=== PATIENT | female | born 1925 | race Two or more races ===

== ENCOUNTER 2016-09-10 18:21 | Inpatient (IN) | payer MEDICARE, MEDICAID ==
[~2016-09-10] VITALS: Ht 152.4 cm; Wt 56.7 kg
[2016-09-10] VITALS (9 sets, daily range): BP systolic 107–126; BP diastolic 58–77
[2016-09-10] MEDS ORDERED: FUROSEMIDE 40 MG/4 ML VIAL IV ONE (18:30)
[2016-09-10] MEDS ORDERED: FUROSEMIDE 20 MG/2 ML VIAL ONE (18:41)
[2016-09-10] MEDS ORDERED: methylPREDNISolone SOD SUCC 125 MG/2ML VIAL ONE (18:41)
[2016-09-10 18:57] LABS: BASOPHILS # (AUTO) 0.1 /CMM (0.0-0.2); BASOPHILS % (AUTO) 0.7 % (0.0-2.0); DIFF TOTAL % 100 %; EOSINOPHILS # (AUTO) 0.1 /CMM (0.0-0.7); EOSINOPHILS % (AUTO) 0.6 % (0.0-6.0); HEMATOCRIT 42 % (33-45); HEMOGLOBIN 14.4 g/dL (11.5-14.8); MEAN CORPUSCULAR HEMOGLOBIN 31 PG (26.0-33.0); MEAN CORPUSCULAR HGB CONC 34 g/dl (31.0-36.0); MEAN CORPUSCULAR VOLUME 91 fL (82-100); MONOCYTES # (AUTO) 0.8 /CMM (0.1-1.30); MONOCYTES % (AUTO) 5.9 % (2.0-12.0); NEUTROPHILS # (AUTO) 9.4 /CMM (1.8-8.9); NEUTROPHILS % (AUTO) 64.8 % (43.0-81.0); PLATELET COUNT (AUTO) 390 /CMM (150-450); RED BLOOD CELL COUNT(AUTO) 4.67 MIL/uL (4.0-5.2); WHITE BLOOD COUNT (AUTO) 14.4 K/uL (4.3-11.0)
[2016-09-10] MEDS ORDERED: ALBUTEROL FS 2.5 MG/3 ML VIAL.NEB NEB ONE (19:00)
[2016-09-10] MEDS ORDERED: methylPREDNISolone SOD SUCC 125 MG/2ML VIAL IV ONE (19:00)
[2016-09-10] MEDS ORDERED: IPRATROPIUM NEB FS 0.5 MG/2.5 ML AMPUL.NEB NEB ONE (19:00)
[2016-09-10 19:05] LABS: CALCIUM, SERUM 9.5 mg/dL (8.5-10.1); CREATININE 1.1 mg/dL (0.6-1.3); POTASSIUM 3.5 mmol/L (3.5-5.1)
[2016-09-10] MEDS ORDERED: IPRATROPIUM NEB FS 0.5 MG/2.5 ML AMPUL.NEB ONE (19:06)
[2016-09-10] MEDS ORDERED: ALBUTEROL FS 2.5 MG/3 ML VIAL.NEB ONE (19:06)
[2016-09-10 19:12] LABS: INR 0.94 (0.87-1.13); PROTHROMBIN TIME 10.2 SECS (9.5-12.7)
[2016-09-10 19:13] LABS: TROPONIN I 0.138 ng/mL (0.00-0.056)
[2016-09-10 19:17] LABS: ALBUMIN 3.6 g/dL (3.4-5.0); BILIRUBIN,DIRECT 0.1 mg/dL (0.0-0.2); BILIRUBIN,TOTAL 0.3 mg/dL (0.2-1.0); INDIRECT BILIRUBIN 0.2 mg/dL (0.0-1.1); TOTAL PROTEIN, SERUM 8.1 g/dL (6.4-8.2)
[2016-09-10] MEDS ORDERED: MAG HYDROX/AL HYDROX/SIMETH 30 ML UDC PO PRN (20:30)
[2016-09-10] MEDS ORDERED: ONDANSETRON HCL/PF 4 MG/2 ML VIAL IVP PRN (20:30)
[2016-09-10] MEDS ORDERED: MAGNESIUM HYDROXIDE 30 ML UDC PO PRN (20:30)
[2016-09-10] MEDS ORDERED: ACETAMINOPHEN 325 MG TABLET PO PRN (20:30)
[2016-09-10] MEDS ORDERED: ENOXAPARIN SODIUM 40 MG/0.4 ML DISP.SYRIN SQ SCH (20:30)
[2016-09-10] MEDS ORDERED: Z GUARD REMEDY 2 OZ OINT TP PRN (20:30)
[2016-09-10] MEDS ORDERED: IPRATROPIUM NEB FS 0.5 MG/2.5 ML AMPUL.NEB NEB PRN (20:30)
[2016-09-10] MEDS ORDERED: ALBUTEROL FS 2.5 MG/0.5 ML VIAL.NEB NEB PRN (20:30)
[2016-09-10] MEDS ORDERED: LEVOFLOXACIN 500 MG /D5W 100ML 500 MG in PREMIX 1 EA IV SCH (20:30)
[2016-09-10] MEDS ORDERED: SECONDARY IV SET 1 EA INFUS.SET MC ONE (20:54)
[2016-09-10] MEDS ORDERED: IV SET PRIMARY PUMP SET 1 EA INFUS.SET MC ONE (20:54)
[2016-09-10] MEDS ORDERED: LEVOFLOXACIN 500 MG /D5W 100ML 500 MG in PREMIX 1 EA IV ONE (21:00)
[2016-09-10] MEDS ORDERED: DEXTROSE 50%-WATER 50 ML DISP.SYRIN IV PRN (21:00)
[2016-09-10 21:01] LABS: ABG BASE EXCESS 0.3 mmol/L; ABG HCO3 23.9 mmol/L; ABG PCO2 35.8 mmHg (35.0-45.0); ABG PH 7.443 (7.350-7.450); ABG PO2 57.7 mmHg (75.0-100.0); ABG TOTAL HEMOGLOBIN 14.2 G/dL (12.0-16.0); ALLEN TEST Pass; AaDO2 475.1 mmHg; O2Hb 89.2 % (94.0-97.0)
[2016-09-10] MEDS: IV NS 0.9% 1,000 ML IV PRN (21:22)
[2016-09-10] MEDS: ENOXAPARIN SODIUM 30 MG/0.3 ML DISP.SYRIN SQ SCH (21:24)
[2016-09-10] MEDS ORDERED: BENZONATATE 100 MG CAPSULE PO ONE (21:52)
[2016-09-10] MEDS: BENZONATATE 100 MG CAPSULE PO PRN (22:54)
[2016-09-10] MEDS: BLOOD SUGAR DIAGNOSTIC 1 EACH STRIP IN SCH (23:56)
[2016-09-10] MEDS: INSULIN REGULAR, HUMAN 100 UNIT/ML 3 ML VIAL SQ PRN (23:59)
[2016-09-11] VITALS (27 sets, daily range): BP systolic 102–140; BP diastolic 60–85
[2016-09-11] MEDS: IPRATROPIUM NEB FS 0.5 MG/2.5 ML AMPUL.NEB NEB SCH ×5 (01:30→19:49)
[2016-09-11] MEDS: ALBUTEROL FS 2.5 MG/0.5 ML VIAL.NEB NEB SCH ×5 (01:30→19:49)
[2016-09-11 05:02] LABS: DIFF TOTAL % 100 %; HEMATOCRIT 40 % (33-45); HEMOGLOBIN 13.3 g/dL (11.5-14.8); LYMPHOCYTES % (AUTO) 11.1 % (20.0-44.0); MEAN CORPUSCULAR HEMOGLOBIN 30 PG (26.0-33.0); MEAN CORPUSCULAR HGB CONC 33 g/dl (31.0-36.0); MEAN CORPUSCULAR VOLUME 90 fL (82-100); MONOCYTES % (AUTO) 0.4 % (2.0-12.0); NEUTROPHILS # (AUTO) 8.4 /CMM (1.8-8.9); NEUTROPHILS % (AUTO) 88.5 % (43.0-81.0); PLATELET COUNT (AUTO) 369 /CMM (150-450); RED BLOOD CELL COUNT(AUTO) 4.41 MIL/uL (4.0-5.2); WHITE BLOOD COUNT (AUTO) 9.4 K/uL (4.3-11.0)
[2016-09-11 05:24] LABS: BILIRUBIN,TOTAL 0.2 mg/dL (0.2-1.0); CALCIUM, SERUM 8.9 mg/dL (8.5-10.1); POTASSIUM 3.9 mmol/L (3.5-5.1); TOTAL PROTEIN, SERUM 7.4 g/dL (6.4-8.2)
[2016-09-11] MEDS: BLOOD SUGAR DIAGNOSTIC 1 EACH STRIP IN SCH ×3 (06:22→18:00)
[2016-09-11] MEDS: INSULIN REGULAR, HUMAN 100 UNIT/ML 3 ML VIAL SQ PRN ×3 (06:28→17:13)
[2016-09-11] MEDS ORDERED: RALO60TA PO (08:05)
[2016-09-11] MEDS ORDERED: THEO400T PO (08:05)
[2016-09-11] MEDS ORDERED: METF500T7 PO (08:05)
[2016-09-11] MEDS ORDERED: OMEP20CA10 PO (08:05)
[2016-09-11] MEDS ORDERED: MONT10TA22 PO (08:05)
[2016-09-11] MEDS ORDERED: GLIP-16 PO (08:05)
[2016-09-11] MEDS ORDERED: SITA100T PO (08:05)
[2016-09-11] MEDS ORDERED: CANA100T PO (08:05)
[2016-09-11] MEDS ORDERED: CELE-85 PO (08:05)
[2016-09-11] MEDS ORDERED: CIPR500T5 PO (08:05)
[2016-09-11] MEDS ORDERED: OLME1TAB2 PO (08:05)
[2016-09-11] MEDS ORDERED: AMLO10TA2 PO (08:05)
[2016-09-11] MEDS: methylPREDNISolone SOD SUCC 125 MG/2ML VIAL IV SCH ×3 (08:54→17:12)
[2016-09-11] MEDS: PANTOPRAZOLE 40 MG VIAL IV SCH (08:54)
[2016-09-11] MEDS ORDERED: MULT-479 PO (09:32)
[2016-09-11] MEDS ORDERED: ASPI81TA2 PO (09:32)
[2016-09-11] MEDS ORDERED: FLUT1DIS29 IH (09:32)
[2016-09-11] MEDS ORDERED: TIOT18CA3 IH (09:32)
[2016-09-11] MEDS ORDERED: MULT-1168 PO (09:32)
[2016-09-11 10:00] LABS: ABG BASE EXCESS 1.7 mmol/L; ABG HCO3 26.1 mmol/L; ABG PCO2 40.1 mmHg (35.0-45.0); ABG PH 7.431 (7.350-7.450); ABG PO2 58.5 mmHg (75.0-100.0); ABG TOTAL HEMOGLOBIN 13.9 G/dL (12.0-16.0); ALLEN TEST Pass; AaDO2 209.5 mmHg; O2Hb 88.9 % (94.0-97.0)
[2016-09-11] MEDS: MULTIVITAMINS W-MINERALS 1 TAB TABLET PO SCH (13:15)
[2016-09-11] MEDS: METFORMIN XR 500 MG TAB.SR.24H PO SCH (13:15)
[2016-09-11] MEDS: MONTELUKAST SODIUM (10MG) 10 MG TABLET PO SCH (13:16)
[2016-09-11] MEDS: AMLODIPINE BESYLATE 10 MG TABLET PO SCH (13:18)
[2016-09-11] MEDS: ASPIRIN 81 MG TAB.CHEW PO SCH (13:18)
[2016-09-11] MEDS: GLIPIZIDE XL 5 MG TAB.OSM.24 PO SCH (13:19)
[2016-09-11] MEDS: RALOXIFENE 60 MG TABLET PO SCH (13:19)
[2016-09-11] MEDS: IV NS 0.9% 1,000 ML IV PRN (17:32)
[2016-09-11] MEDS ORDERED: IV SET PRIMARY PUMP SET 1 EA INFUS.SET MC ONE (19:24)
[2016-09-11] MEDS: LEVOFLOXACIN 250 MG /D5W 50 ML 250 MG in PREMIX 1 EA IV SCH (21:04)
[2016-09-11] MEDS: ENOXAPARIN SODIUM 30 MG/0.3 ML DISP.SYRIN SQ SCH (21:16)
[2016-09-11] MEDS: Z GUARD REMEDY 2 OZ OINT TP SCH (21:18)
[2016-09-12] VITALS (16 sets, daily range): BP systolic 118–145; BP diastolic 63–75
[2016-09-12] MEDS: INSULIN REGULAR, HUMAN 100 UNIT/ML 3 ML VIAL SQ PRN ×4 (00:17→23:41)
[2016-09-12] MEDS: BLOOD SUGAR DIAGNOSTIC 1 EACH STRIP IN SCH ×5 (00:23→23:39)
[2016-09-12] MEDS: IPRATROPIUM NEB FS 0.5 MG/2.5 ML AMPUL.NEB NEB SCH ×4 (01:30→19:10)
[2016-09-12] MEDS: ALBUTEROL FS 2.5 MG/0.5 ML VIAL.NEB NEB SCH ×4 (01:30→19:10)
[2016-09-12] MEDS: ZOLPIDEM TARTRATE 5 MG TABLET PO PRN ×2 (02:39→22:31)
[2016-09-12] MEDS ORDERED: Medication Not On Formulary EA (Omeprazole 20 MG) PO SCH (09:00)
[2016-09-12] MEDS ORDERED: Medication Not On Formulary EA (Mu-Vits-Min Th/Lycopene/Lutein (Centrum Silver Tablet) 1 PO SCH (09:00)
[2016-09-12] MEDS: PANTOPRAZOLE 40 MG VIAL IV SCH (09:21)
[2016-09-12] MEDS: RALOXIFENE 60 MG TABLET PO SCH (09:21)
[2016-09-12] MEDS: GLIPIZIDE XL 5 MG TAB.OSM.24 PO SCH (09:21)
[2016-09-12] MEDS: CELECOXIB 100 MG CAPSULE PO SCH (09:21)
[2016-09-12] MEDS: methylPREDNISolone SOD SUCC 125 MG/2ML VIAL IV SCH ×3 (09:21→16:25)
[2016-09-12] MEDS: METFORMIN XR 500 MG TAB.SR.24H PO SCH (09:22)
[2016-09-12] MEDS: SITAGLIPTIN PHOSPHATE 50 MG TABLET PO SCH (09:22)
[2016-09-12] MEDS: MONTELUKAST SODIUM (10MG) 10 MG TABLET PO SCH (09:22)
[2016-09-12] MEDS: MULTIVITAMINS W-MINERALS 1 TAB TABLET PO SCH (09:22)
[2016-09-12] MEDS: ASPIRIN 81 MG TAB.CHEW PO SCH (09:22)
[2016-09-12] MEDS: AMLODIPINE BESYLATE 10 MG TABLET PO SCH (09:22)
[2016-09-12] MEDS: Z GUARD REMEDY 2 OZ OINT TP SCH (09:23)
[2016-09-12] MEDS: IV NS 0.9% 1,000 ML IV PRN (13:35)
[2016-09-12] MEDS: INVOKANA 100 MG PO SCH (16:24)
[2016-09-12] MEDS: BENICAR HCTZ PO SCH (16:24)
[2016-09-12] MEDS: LEVOFLOXACIN 250 MG /D5W 50 ML 250 MG in PREMIX 1 EA IV SCH (21:15)
[2016-09-12] MEDS: ENOXAPARIN SODIUM 30 MG/0.3 ML DISP.SYRIN SQ SCH (21:22)
[2016-09-13] VITALS: BP 136/66
[2016-09-13] MEDS: IPRATROPIUM NEB FS 0.5 MG/2.5 ML AMPUL.NEB NEB SCH ×5 (01:33→22:41)
[2016-09-13] MEDS: ALBUTEROL FS 2.5 MG/0.5 ML VIAL.NEB NEB SCH ×5 (01:33→22:41)
[2016-09-13 04:00] VITALS: BP 134/68
[2016-09-13] MEDS: BLOOD SUGAR DIAGNOSTIC 1 EACH STRIP IN SCH ×4 (05:47→23:18)
[2016-09-13] MEDS: INSULIN REGULAR, HUMAN 100 UNIT/ML 3 ML VIAL SQ PRN ×4 (05:49→23:19)
[2016-09-13 08:00] VITALS: BP_SYST 129; BP_SYST 145; BP_DIAS 63; BP_DIAS 73; BP_DIAS 85
[2016-09-13] MEDS: RALOXIFENE 60 MG TABLET PO SCH (08:37)
[2016-09-13] MEDS: ASPIRIN 81 MG TAB.CHEW PO SCH (08:38)
[2016-09-13] MEDS: PANTOPRAZOLE 40 MG VIAL IV SCH (08:38)
[2016-09-13] MEDS: methylPREDNISolone SOD SUCC 125 MG/2ML VIAL IV SCH ×3 (08:38→17:39)
[2016-09-13] MEDS: MONTELUKAST SODIUM (10MG) 10 MG TABLET PO SCH (08:38)
[2016-09-13] MEDS: MULTIVITAMINS W-MINERALS 1 TAB TABLET PO SCH (08:38)
[2016-09-13] MEDS: GLIPIZIDE XL 5 MG TAB.OSM.24 PO SCH (08:39)
[2016-09-13] MEDS: BENICAR HCTZ PO SCH (08:39)
[2016-09-13] MEDS: AMLODIPINE BESYLATE 10 MG TABLET PO SCH (08:39)
[2016-09-13] MEDS: INVOKANA 100 MG PO SCH (08:39)
[2016-09-13] MEDS: Z GUARD REMEDY 2 OZ OINT TP SCH (08:40)
[2016-09-13] MEDS: SITAGLIPTIN PHOSPHATE 50 MG TABLET PO SCH (08:40)
[2016-09-13] MEDS: CELECOXIB 100 MG CAPSULE PO SCH (08:41)
[2016-09-13] MEDS: BENZONATATE 100 MG CAPSULE PO PRN (08:53)
[2016-09-13] MEDS ORDERED: FUROSEMIDE 20 MG/2 ML VIAL IV ONE (11:00)
[2016-09-13] MEDS: ACETYLCYSTEINE 20% SOLN 800 MG/4 ML VIAL NEB SCH ×4 (11:21→22:41)
[2016-09-13 12:00] VITALS: BP 115/62
[2016-09-13] MEDS: METFORMIN XR 500 MG TAB.SR.24H PO SCH (12:02)
[2016-09-13] MEDS: IV NS 0.9% 1,000 ML IV PRN (14:35)
[2016-09-13 16:00] VITALS: BP 121/58
[2016-09-13 20:00] VITALS: BP 121/69
[2016-09-13] MEDS: LEVOFLOXACIN 250 MG /D5W 50 ML 250 MG in PREMIX 1 EA IV SCH (20:59)
[2016-09-13] MEDS: ENOXAPARIN SODIUM 30 MG/0.3 ML DISP.SYRIN SQ SCH (20:59)
[2016-09-13] MEDS: MORPHINE SULFATE INJ 2 MG/ML DISP.SYRIN IV PRN (22:21)
[2016-09-14] VITALS (8 sets, daily range): BP systolic 118–135; BP diastolic 58–77
[2016-09-14] MEDS: ALBUTEROL FS 2.5 MG/0.5 ML VIAL.NEB NEB SCH ×6 (03:15→23:40)
[2016-09-14] MEDS: IPRATROPIUM NEB FS 0.5 MG/2.5 ML AMPUL.NEB NEB SCH ×6 (03:15→23:40)
[2016-09-14] MEDS: ACETYLCYSTEINE 20% SOLN 800 MG/4 ML VIAL NEB SCH ×6 (03:15→23:44)
[2016-09-14] MEDS: BLOOD SUGAR DIAGNOSTIC 1 EACH STRIP IN SCH ×4 (05:33→23:33)
[2016-09-14] MEDS: IV NS 0.9% 1,000 ML IV PRN (07:10)
[2016-09-14] MEDS: PANTOPRAZOLE 40 MG VIAL IV SCH (08:41)
[2016-09-14] MEDS: FUROSEMIDE 20 MG/2 ML VIAL IV SCH (08:42)
[2016-09-14] MEDS: AMLODIPINE BESYLATE 10 MG TABLET PO SCH (08:42)
[2016-09-14] MEDS: CELECOXIB 100 MG CAPSULE PO SCH (08:42)
[2016-09-14] MEDS: methylPREDNISolone SOD SUCC 125 MG/2ML VIAL IV SCH ×3 (08:42→17:23)
[2016-09-14] MEDS: MONTELUKAST SODIUM (10MG) 10 MG TABLET PO SCH (08:42)
[2016-09-14] MEDS: ASPIRIN 81 MG TAB.CHEW PO SCH (08:42)
[2016-09-14] MEDS: MULTIVITAMINS W-MINERALS 1 TAB TABLET PO SCH (08:42)
[2016-09-14] MEDS: GLIPIZIDE XL 5 MG TAB.OSM.24 PO SCH (08:43)
[2016-09-14] MEDS: METFORMIN XR 500 MG TAB.SR.24H PO SCH (08:43)
[2016-09-14] MEDS: BENICAR HCTZ PO SCH (08:44)
[2016-09-14] MEDS: INVOKANA 100 MG PO SCH (08:44)
[2016-09-14] MEDS: SITAGLIPTIN PHOSPHATE 50 MG TABLET PO SCH (08:44)
[2016-09-14] MEDS: RALOXIFENE 60 MG TABLET PO SCH (08:45)
[2016-09-14] MEDS: Z GUARD REMEDY 2 OZ OINT TP SCH (08:54)
[2016-09-14] MEDS: INSULIN REGULAR, HUMAN 100 UNIT/ML 3 ML VIAL SQ PRN ×2 (12:13→17:23)
[2016-09-14] MEDS: LEVOFLOXACIN 250 MG /D5W 50 ML 250 MG in PREMIX 1 EA IV SCH (20:09)
[2016-09-14] MEDS: ENOXAPARIN SODIUM 30 MG/0.3 ML DISP.SYRIN SQ SCH (20:09)
[2016-09-14] MEDS: MORPHINE SULFATE INJ 2 MG/ML DISP.SYRIN IV PRN (22:45)
[2016-09-15] VITALS (7 sets, daily range): BP systolic 128–139; BP diastolic 58–83
[2016-09-15] MEDS: ZOLPIDEM TARTRATE 5 MG TABLET PO PRN (02:29)
[2016-09-15] MEDS ORDERED: ACETYLCYSTEINE 20% SOLN 800 MG/4 ML VIAL ONE (03:37)
[2016-09-15] MEDS: IPRATROPIUM NEB FS 0.5 MG/2.5 ML AMPUL.NEB NEB SCH ×6 (03:45→23:24)
[2016-09-15] MEDS: ALBUTEROL FS 2.5 MG/0.5 ML VIAL.NEB NEB SCH ×6 (03:45→23:24)
[2016-09-15] MEDS: ACETYLCYSTEINE 20% SOLN 800 MG/4 ML VIAL NEB SCH ×6 (03:46→23:24)
[2016-09-15] MEDS: BLOOD SUGAR DIAGNOSTIC 1 EACH STRIP IN SCH ×4 (05:04→23:54)
[2016-09-15] MEDS: IV NS 0.9% 1,000 ML IV PRN (05:04)
[2016-09-15] MEDS: INVOKANA 100 MG PO SCH (09:00)
[2016-09-15] MEDS: BENICAR HCTZ PO SCH (09:00)
[2016-09-15] MEDS: CELECOXIB 100 MG CAPSULE PO SCH (09:00)
[2016-09-15] MEDS: Z GUARD REMEDY 2 OZ OINT TP SCH (09:00)
[2016-09-15] MEDS: MULTIVITAMINS W-MINERALS 1 TAB TABLET PO SCH (09:40)
[2016-09-15] MEDS: SITAGLIPTIN PHOSPHATE 50 MG TABLET PO SCH (09:40)
[2016-09-15] MEDS: ASPIRIN 81 MG TAB.CHEW PO SCH (09:40)
[2016-09-15] MEDS: methylPREDNISolone SOD SUCC 125 MG/2ML VIAL IV SCH ×3 (09:41→18:19)
[2016-09-15] MEDS: FUROSEMIDE 20 MG/2 ML VIAL IV SCH ×2 (09:41→10:31)
[2016-09-15] MEDS: RALOXIFENE 60 MG TABLET PO SCH (10:24)
[2016-09-15] MEDS: METFORMIN XR 500 MG TAB.SR.24H PO SCH (10:24)
[2016-09-15] MEDS: GLIPIZIDE XL 5 MG TAB.OSM.24 PO SCH (10:24)
[2016-09-15] MEDS: BENZONATATE 100 MG CAPSULE PO PRN (10:25)
[2016-09-15] MEDS: MONTELUKAST SODIUM (10MG) 10 MG TABLET PO SCH (10:25)
[2016-09-15] MEDS: PANTOPRAZOLE 40 MG VIAL IV SCH (10:30)
[2016-09-15] MEDS: AMLODIPINE BESYLATE 10 MG TABLET PO SCH (11:15)
[2016-09-15] MEDS: INSULIN REGULAR, HUMAN 100 UNIT/ML 3 ML VIAL SQ PRN (18:07)
[2016-09-15] MEDS: LEVOFLOXACIN 250 MG /D5W 50 ML 250 MG in PREMIX 1 EA IV SCH (21:42)
[2016-09-15] MEDS: ENOXAPARIN SODIUM 30 MG/0.3 ML DISP.SYRIN SQ SCH (21:43)
[2016-09-15] MEDS ORDERED: CODEINE/PROMETHAZINE HCL 5 ML UDC PO SCH (22:00)
[2016-09-16] MEDS: ACETYLCYSTEINE 20% SOLN 800 MG/4 ML VIAL NEB SCH ×4 (03:26→15:35)
[2016-09-16] MEDS: ALBUTEROL FS 2.5 MG/0.5 ML VIAL.NEB NEB SCH ×4 (03:26→15:35)
[2016-09-16] MEDS: IPRATROPIUM NEB FS 0.5 MG/2.5 ML AMPUL.NEB NEB SCH ×4 (03:26→15:35)
[2016-09-16 04:00] VITALS: BP 128/70
[2016-09-16] MEDS: BLOOD SUGAR DIAGNOSTIC 1 EACH STRIP IN SCH ×2 (06:20→12:24)
[2016-09-16 08:00] VITALS: BP 129/81
[2016-09-16] MEDS: CELECOXIB 100 MG CAPSULE PO SCH (08:33)
[2016-09-16] MEDS: methylPREDNISolone SOD SUCC 125 MG/2ML VIAL IV SCH (08:33)
[2016-09-16] MEDS: MONTELUKAST SODIUM (10MG) 10 MG TABLET PO SCH (08:33)
[2016-09-16] MEDS: SITAGLIPTIN PHOSPHATE 50 MG TABLET PO SCH (08:33)
[2016-09-16] MEDS: PANTOPRAZOLE 40 MG VIAL IV SCH (08:33)
[2016-09-16] MEDS: INVOKANA 100 MG PO SCH (08:34)
[2016-09-16] MEDS: MULTIVITAMINS W-MINERALS 1 TAB TABLET PO SCH (08:34)
[2016-09-16] MEDS: ASPIRIN 81 MG TAB.CHEW PO SCH (08:34)
[2016-09-16] MEDS: RALOXIFENE 60 MG TABLET PO SCH (08:34)
[2016-09-16] MEDS: METFORMIN XR 500 MG TAB.SR.24H PO SCH (08:34)
[2016-09-16] MEDS: GLIPIZIDE XL 5 MG TAB.OSM.24 PO SCH (08:34)
[2016-09-16] MEDS: BENICAR HCTZ PO SCH (08:35)
[2016-09-16] MEDS: AMLODIPINE BESYLATE 10 MG TABLET PO SCH (08:36)
[2016-09-16] MEDS: Z GUARD REMEDY 2 OZ OINT TP SCH (08:37)
[2016-09-16] MEDS ORDERED: FUROSEMIDE 40 MG/4 ML VIAL IV SCH (09:00)
[2016-09-16] MEDS ORDERED: FUROSEMIDE 20 MG/2 ML VIAL IV SCH (09:00)
[2016-09-16 12:00] VITALS: BP 128/81
[2016-09-16] MEDS: INSULIN REGULAR, HUMAN 100 UNIT/ML 3 ML VIAL SQ PRN (12:27)
[2016-09-16 16:00] VITALS: BP 134/71
[2016-09-16] MEDS ORDERED: LEVOFLOXACIN (250MG) 250 MG TABLET PO SCH (21:00)
== END 2016-09-16 17:46 | DRG 280 ==
LOC: ER 18:23 → ICU 19:38 → TELE1 09-12 13:47 → MEDSG1 09-16 12:04
PROVIDERS: ADMIT Family Medicine; ATTEND Family Medicine
PROC: 5A09357 Assistance with Respiratory Ventilation, Less than 24 Consecutive Hours, Continuous Positive Airway Pressure (ICD-10-PCS; principal; 2016-09-10)
DX: I21.4 Non-ST elevation (NSTEMI) myocardial infarction (principal); J96.22 Acute and chronic respiratory failure with hypercapnia; J96.21 Acute and chronic respiratory failure with hypoxia; J44.0 Chronic obstructive pulmonary disease with (acute) lower respiratory infection; J45.901 Unspecified asthma with (acute) exacerbation; I50.32 Chronic diastolic (congestive) heart failure; D72.829 Elevated white blood cell count, unspecified; J44.9 Chronic obstructive pulmonary disease, unspecified; K21.9 Gastro-esophageal reflux disease without esophagitis; J20.9 Acute bronchitis, unspecified; G47.00 Insomnia, unspecified; Z86.19 Personal history of other infectious and parasitic diseases; Z87.891 Personal history of nicotine dependence; I11.0 Hypertensive heart disease with heart failure; E11.65 Type 2 diabetes mellitus with hyperglycemia
CPT/HCPCS: 36415; 36600; 71010-TC; 80048-TC; 80053-TC; 80076-TC; 82962-TC; 83735-TC; 83880; 84100-TC; 84443-TC; 84484-TC; 85025-TC; 85730-TC; 87081-TC; 93307-TC; 94799-TC; 97001-TC; A4216; A4606; C9113; J1650; J1815; J1940; J1956; J2270; J2930; J7030; Z7610

== ENCOUNTER 2016-10-16 19:26 | Inpatient (IN) | payer MEDICARE, MEDICAID ==
[2016-10-16] VITALS (10 sets, daily range): BP systolic 123–198; BP diastolic 78–95
[~2016-10-16] VITALS: Ht 149.9 cm; Wt 59.0 kg
[~2016-10-16 19:26] MED LIST: AMLO10TA2 PO; ASPI81TA2 PO; CANA100T PO; CELE-85 PO; CIPR500T5 PO; FLUT1DIS29 IH; GLIP-16 PO; METF500T7 PO; MONT10TA22 PO; MULT-1168 PO; MULT-479 PO; OLME1TAB2 PO; OMEP20CA10 PO; RALO60TA PO; SITA100T PO; TIOT18CA3 IH
[2016-10-16 19:40] LABS: BASOPHILS % (AUTO) 0.2 % (0.0-2.0); DIFF TOTAL % 100 %; HEMATOCRIT 47 % (33-45); HEMOGLOBIN 15.2 g/dL (11.5-14.8); LYMPHOCYTES # (AUTO) 1.1 /CMM (0.8-4.8); LYMPHOCYTES % (AUTO) 10.4 % (20.0-44.0); MEAN CORPUSCULAR HEMOGLOBIN 30 PG (26.0-33.0); MEAN CORPUSCULAR HGB CONC 33 g/dl (31.0-36.0); MEAN CORPUSCULAR VOLUME 92 fL (82-100); MONOCYTES # (AUTO) 0.2 /CMM (0.1-1.30); NEUTROPHILS # (AUTO) 9.6 /CMM (1.8-8.9); NEUTROPHILS % (AUTO) 87.4 % (43.0-81.0); PLATELET COUNT (AUTO) 328 /CMM (150-450); RED BLOOD CELL COUNT(AUTO) 5.07 MIL/uL (4.0-5.2); WHITE BLOOD COUNT (AUTO) 10.9 K/uL (4.3-11.0)
[2016-10-16 19:53] LABS: INR 0.93 (0.87-1.13); PROTHROMBIN TIME 9.8 SECS (9.5-12.7)
[2016-10-16 19:56] LABS: TROPONIN I 0.073 ng/mL (0.00-0.056)
[2016-10-16 20:01] LABS: ALBUMIN 3.9 g/dL (3.4-5.0); BILIRUBIN,DIRECT 0.1 mg/dL (0.0-0.2); BILIRUBIN,TOTAL 0.3 mg/dL (0.2-1.0); CALCIUM, SERUM 9.6 mg/dL (8.5-10.1); CREATININE 1.1 mg/dL (0.6-1.3); INDIRECT BILIRUBIN 0.2 mg/dL (0.0-1.1); POTASSIUM 3.8 mmol/L (3.5-5.1); TOTAL PROTEIN, SERUM 8.2 g/dL (6.4-8.2)
[2016-10-16] MEDS ORDERED: methylPREDNISolone SOD SUCC 125 MG/2ML VIAL IV ONE (20:30)
[2016-10-16] MEDS ORDERED: methylPREDNISolone SOD SUCC 125 MG/2ML VIAL ONE ×2 (20:30→22:15)
[2016-10-16] MEDS ORDERED: ENOXAPARIN SODIUM 40 MG/0.4 ML DISP.SYRIN SQ ONE (22:15)
[2016-10-16] MEDS ORDERED: AMLODIPINE BESYLATE 10 MG TABLET ONE (22:29)
[2016-10-16] MEDS ORDERED: SITAGLIPTIN PHOSPHATE 50 MG TABLET PO ONE (22:30)
[2016-10-16] MEDS ORDERED: AMLODIPINE BESYLATE 10 MG TABLET PO ONE (22:30)
[2016-10-16] MEDS ORDERED: SITAGLIPTIN PHOSPHATE 50 MG TABLET ONE (22:30)
[2016-10-16] MEDS ORDERED: ENOXAPARIN SODIUM 40 MG/0.4 ML DISP.SYRIN SQ SCH (22:30)
[2016-10-16] MEDS ORDERED: ONDANSETRON HCL/PF 4 MG/2 ML VIAL IVP PRN (22:30)
[2016-10-16] MEDS ORDERED: Z GUARD REMEDY 2 OZ OINT TP PRN (22:30)
[2016-10-16] MEDS ORDERED: DEXTROSE 50%-WATER 50 ML DISP.SYRIN IV PRN (22:30)
[2016-10-16] MEDS: methylPREDNISolone SOD SUCC 125 MG/2ML VIAL IV SCH (22:41)
[2016-10-16] MEDS ORDERED: ALBUTEROL HALF STRENGTH 1.25 MG/3 ML VIAL.NEB ONE (22:51)
[2016-10-16] MEDS ORDERED: IPRATROPIUM NEB FS 0.5 MG/2.5 ML AMPUL.NEB ONE (22:52)
[2016-10-16] MEDS: ALBUTEROL HALF STRENGTH 1.25 MG/3 ML VIAL.NEB NEB SCH (22:55)
[2016-10-16] MEDS: IPRATROPIUM NEB FS 0.5 MG/2.5 ML AMPUL.NEB NEB SCH (22:55)
[2016-10-16] MEDS ORDERED: ZOLPIDEM TARTRATE 5 MG TABLET ONE (23:56)
[2016-10-16] MEDS ORDERED: FLUCONAZOLE (100 MG) 100 MG TABLET ONE (23:56)
[2016-10-16] MEDS ORDERED: ACETAMINOPHEN 325 MG TABLET ONE (23:56)
[2016-10-17] VITALS (27 sets, daily range): BP systolic 95–162; BP diastolic 48–80
[2016-10-17] MEDS ORDERED: ACETAMINOPHEN 325 MG TABLET PO PRN
[2016-10-17] MEDS ORDERED: FLUCONAZOLE (100 MG) 100 MG TABLET PO ONE
[2016-10-17] MEDS ORDERED: CODEINE/PROMETHAZINE HCL 5 ML UDC ONE (00:42)
[2016-10-17] MEDS: CODEINE/PROMETHAZINE HCL 5 ML UDC PO PRN ×4 (00:46→21:49)
[2016-10-17 05:09] LABS: BASOPHILS % (AUTO) 0.2 % (0.0-2.0); DIFF TOTAL % 100 %; HEMATOCRIT 42 % (33-45); HEMOGLOBIN 13.8 g/dL (11.5-14.8); LYMPHOCYTES # (AUTO) 1.1 /CMM (0.8-4.8); LYMPHOCYTES % (AUTO) 14.1 % (20.0-44.0); MEAN CORPUSCULAR HEMOGLOBIN 30 PG (26.0-33.0); MEAN CORPUSCULAR HGB CONC 33 g/dl (31.0-36.0); MEAN CORPUSCULAR VOLUME 92 fL (82-100); MONOCYTES # (AUTO) 0.1 /CMM (0.1-1.30); MONOCYTES % (AUTO) 0.9 % (2.0-12.0); NEUTROPHILS # (AUTO) 6.7 /CMM (1.8-8.9); NEUTROPHILS % (AUTO) 84.8 % (43.0-81.0); PLATELET COUNT (AUTO) 292 /CMM (150-450); WHITE BLOOD COUNT (AUTO) 7.9 K/uL (4.3-11.0)
[2016-10-17 05:23] LABS: TROPONIN I 0.066 ng/mL (0.00-0.056)
[2016-10-17 05:24] LABS: ALBUMIN 3.3 g/dL (3.4-5.0); BILIRUBIN,TOTAL 0.2 mg/dL (0.2-1.0); CALCIUM, SERUM 9.2 mg/dL (8.5-10.1); PHOSPHORUS 4.3 mg/dL (2.5-4.9); POTASSIUM 3.7 mmol/L (3.5-5.1)
[2016-10-17 05:30] LABS: THYROID STIMULATING HORMONE 0.346 uIU/mL (0.358-3.74)
[2016-10-17] MEDS: IPRATROPIUM NEB FS 0.5 MG/2.5 ML AMPUL.NEB NEB SCH ×5 (07:37→23:25)
[2016-10-17] MEDS: ALBUTEROL HALF STRENGTH 1.25 MG/3 ML VIAL.NEB NEB SCH ×5 (07:37→23:25)
[2016-10-17] MEDS: INSULIN REGULAR, HUMAN 100 UNIT/ML 3 ML VIAL SQ PRN ×3 (08:01→17:12)
[2016-10-17] MEDS: BLOOD SUGAR DIAGNOSTIC 1 EACH STRIP VI SCH ×4 (08:01→21:33)
[2016-10-17] MEDS: MONTELUKAST SODIUM (10MG) 10 MG TABLET PO SCH (08:31)
[2016-10-17] MEDS: METFORMIN XR 500 MG TAB.SR.24H PO SCH (08:31)
[2016-10-17] MEDS: MULTIVITAMINS W-MINERALS 1 TAB TABLET PO SCH (08:31)
[2016-10-17] MEDS: SITAGLIPTIN PHOSPHATE 50 MG TABLET PO SCH ×3 (08:31→17:12)
[2016-10-17] MEDS: LOSARTAN POTASSIUM 50 MG TABLET PO SCH (08:32)
[2016-10-17] MEDS: ASPIRIN 81 MG TAB.CHEW PO SCH (08:32)
[2016-10-17] MEDS: AMLODIPINE BESYLATE 10 MG TABLET PO SCH ×3 (08:32→21:32)
[2016-10-17] MEDS: methylPREDNISolone SOD SUCC 125 MG/2ML VIAL IV SCH ×3 (08:32→17:12)
[2016-10-17] MEDS: HYDROCHLOROTHIAZIDE 25 MG TABLET PO SCH (08:32)
[2016-10-17] MEDS: PANTOPRAZOLE 40 MG TABLET.DR PO SCH (08:32)
[2016-10-17] MEDS: FLUTICASONE/SALMETEROL DISKUS IH SCH ×2 (08:35→17:12)
[2016-10-17] MEDS: RALOXIFENE 60 MG TABLET PO SCH (08:35)
[2016-10-17] MEDS ORDERED: FLUTICASONE/SALMETEROL DISKUS IH SCH (09:00)
[2016-10-17] MEDS ORDERED: SITAGLIPTIN PHOSPHATE 50 MG TABLET PO SCH (18:00)
[2016-10-17] MEDS: ATORVASTATIN 10 MG TABLET PO SCH (21:33)
[2016-10-17] MEDS: *INSULIN REGULAR(HUMULIN R)HUM 100 UNIT/ML VIAL SQ PRN (21:36)
[2016-10-17] MEDS: INSULIN DETEMIR 100 UNIT/ML CARTRIDGE SQ SCH (21:36)
[2016-10-17] MEDS: ENOXAPARIN SODIUM 30 MG/0.3 ML DISP.SYRIN SQ SCH (21:38)
[2016-10-17] MEDS: ZOLPIDEM TARTRATE 5 MG TABLET PO PRN ×2 (22:55)
[2016-10-18] VITALS (9 sets, daily range): BP systolic 124–140; BP diastolic 63–80
[2016-10-18] MEDS: BLOOD SUGAR DIAGNOSTIC 1 EACH STRIP VI SCH ×4 (06:27→21:02)
[2016-10-18] MEDS: INSULIN REGULAR, HUMAN 100 UNIT/ML 3 ML VIAL SQ PRN ×3 (06:28→16:42)
[2016-10-18] MEDS: MULTIVITAMINS W-MINERALS 1 TAB TABLET PO SCH (08:14)
[2016-10-18] MEDS: PANTOPRAZOLE 40 MG TABLET.DR PO SCH (08:14)
[2016-10-18] MEDS: methylPREDNISolone SOD SUCC 125 MG/2ML VIAL IV SCH ×3 (08:14→16:17)
[2016-10-18] MEDS: FLUTICASONE/SALMETEROL DISKUS IH SCH ×2 (08:14→16:16)
[2016-10-18] MEDS: HYDROCHLOROTHIAZIDE 25 MG TABLET PO SCH (08:15)
[2016-10-18] MEDS: METFORMIN XR 500 MG TAB.SR.24H PO SCH (08:15)
[2016-10-18] MEDS: ASPIRIN 81 MG TAB.CHEW PO SCH (08:15)
[2016-10-18] MEDS: MONTELUKAST SODIUM (10MG) 10 MG TABLET PO SCH (08:16)
[2016-10-18] MEDS: RALOXIFENE 60 MG TABLET PO SCH (08:16)
[2016-10-18] MEDS: LOSARTAN POTASSIUM 50 MG TABLET PO SCH (08:16)
[2016-10-18] MEDS: ALBUTEROL HALF STRENGTH 1.25 MG/3 ML VIAL.NEB NEB SCH ×3 (11:45→21:03)
[2016-10-18] MEDS: IPRATROPIUM NEB FS 0.5 MG/2.5 ML AMPUL.NEB NEB SCH ×3 (11:45→21:03)
[2016-10-18] MEDS: CODEINE/PROMETHAZINE HCL 5 ML UDC PO PRN ×2 (16:17→22:12)
[2016-10-18] MEDS: SITAGLIPTIN PHOSPHATE 50 MG TABLET PO SCH (17:14)
[2016-10-18] MEDS: AMLODIPINE BESYLATE 10 MG TABLET PO SCH (21:02)
[2016-10-18] MEDS: ATORVASTATIN 10 MG TABLET PO SCH (21:02)
[2016-10-18] MEDS: ENOXAPARIN SODIUM 30 MG/0.3 ML DISP.SYRIN SQ SCH (21:03)
[2016-10-18] MEDS: INSULIN DETEMIR 100 UNIT/ML CARTRIDGE SQ SCH (22:11)
[2016-10-18] MEDS: *INSULIN REGULAR(HUMULIN R)HUM 100 UNIT/ML VIAL SQ PRN (22:11)
[2016-10-19] VITALS (9 sets, daily range): BP systolic 130–141; BP diastolic 59–75
[2016-10-19] MEDS: IPRATROPIUM NEB FS 0.5 MG/2.5 ML AMPUL.NEB NEB PRN (04:53)
[2016-10-19] MEDS ORDERED: ALBUTEROL FS 2.5 MG/3 ML VIAL.NEB ONE (04:58)
[2016-10-19] MEDS: ALBUTEROL FS 2.5 MG/3 ML VIAL.NEB NEB PRN (05:00)
[2016-10-19] MEDS: BLOOD SUGAR DIAGNOSTIC 1 EACH STRIP VI SCH ×4 (06:49→21:57)
[2016-10-19] MEDS: INSULIN REGULAR, HUMAN 100 UNIT/ML 3 ML VIAL SQ PRN ×3 (06:52→17:05)
[2016-10-19] MEDS: IPRATROPIUM NEB FS 0.5 MG/2.5 ML AMPUL.NEB NEB SCH ×4 (07:30→19:54)
[2016-10-19] MEDS: ALBUTEROL HALF STRENGTH 1.25 MG/3 ML VIAL.NEB NEB SCH ×4 (07:30→19:54)
[2016-10-19] MEDS: RALOXIFENE 60 MG TABLET PO SCH (08:48)
[2016-10-19] MEDS: methylPREDNISolone SOD SUCC 125 MG/2ML VIAL IV SCH ×3 (08:49→17:06)
[2016-10-19] MEDS: ASPIRIN 81 MG TAB.CHEW PO SCH (08:49)
[2016-10-19] MEDS: METFORMIN XR 500 MG TAB.SR.24H PO SCH (08:49)
[2016-10-19] MEDS: PANTOPRAZOLE 40 MG TABLET.DR PO SCH (08:49)
[2016-10-19] MEDS: LOSARTAN POTASSIUM 50 MG TABLET PO SCH (08:49)
[2016-10-19] MEDS: MONTELUKAST SODIUM (10MG) 10 MG TABLET PO SCH (08:49)
[2016-10-19] MEDS: MULTIVITAMINS W-MINERALS 1 TAB TABLET PO SCH (08:50)
[2016-10-19] MEDS: HYDROCHLOROTHIAZIDE 25 MG TABLET PO SCH (08:50)
[2016-10-19] MEDS: FLUTICASONE/SALMETEROL DISKUS IH SCH ×2 (08:58→17:03)
[2016-10-19] MEDS: CODEINE/PROMETHAZINE HCL 5 ML UDC PO PRN ×2 (11:39→21:35)
[2016-10-19] MEDS: AZELASTINE NASAL SPRAY 30 ML BOTTLE NS SCH ×2 (13:00→17:03)
[2016-10-19] MEDS: SITAGLIPTIN PHOSPHATE 50 MG TABLET PO SCH (17:08)
[2016-10-19] MEDS ORDERED: CODEINE/PROMETHAZINE HCL 5 ML UDC ONE (21:16)
[2016-10-19] MEDS: AMLODIPINE BESYLATE 10 MG TABLET PO SCH (21:35)
[2016-10-19] MEDS: ZOLPIDEM TARTRATE 5 MG TABLET PO PRN (21:35)
[2016-10-19] MEDS: ATORVASTATIN 10 MG TABLET PO SCH (21:35)
[2016-10-19] MEDS: ENOXAPARIN SODIUM 30 MG/0.3 ML DISP.SYRIN SQ SCH (21:37)
[2016-10-19] MEDS: *INSULIN REGULAR(HUMULIN R)HUM 100 UNIT/ML VIAL SQ PRN (22:02)
[2016-10-19] MEDS: INSULIN DETEMIR 100 UNIT/ML CARTRIDGE SQ SCH (22:03)
[2016-10-20] MEDS: IPRATROPIUM NEB FS 0.5 MG/2.5 ML AMPUL.NEB NEB PRN (02:04)
[2016-10-20] MEDS: ALBUTEROL FS 2.5 MG/3 ML VIAL.NEB NEB PRN (02:04)
[2016-10-20] MEDS: INSULIN REGULAR, HUMAN 100 UNIT/ML 3 ML VIAL SQ PRN ×3 (06:30→17:24)
[2016-10-20] MEDS: BLOOD SUGAR DIAGNOSTIC 1 EACH STRIP VI SCH ×4 (06:44→21:26)
[2016-10-20 08:00] VITALS: BP 124/72
[2016-10-20] MEDS: ALBUTEROL HALF STRENGTH 1.25 MG/3 ML VIAL.NEB NEB SCH ×4 (08:08→19:39)
[2016-10-20] MEDS: IPRATROPIUM NEB FS 0.5 MG/2.5 ML AMPUL.NEB NEB SCH ×4 (08:08→19:38)
[2016-10-20] MEDS: FLUTICASONE/SALMETEROL DISKUS IH SCH ×2 (08:45→17:20)
[2016-10-20] MEDS: AZELASTINE NASAL SPRAY 30 ML BOTTLE NS SCH ×2 (08:46→17:21)
[2016-10-20] MEDS: methylPREDNISolone SOD SUCC 125 MG/2ML VIAL IV SCH ×3 (08:48→17:18)
[2016-10-20] MEDS: MONTELUKAST SODIUM (10MG) 10 MG TABLET PO SCH (08:48)
[2016-10-20] MEDS: METFORMIN XR 500 MG TAB.SR.24H PO SCH (08:48)
[2016-10-20] MEDS: MULTIVITAMINS W-MINERALS 1 TAB TABLET PO SCH (08:48)
[2016-10-20] MEDS: PANTOPRAZOLE 40 MG TABLET.DR PO SCH (08:49)
[2016-10-20] MEDS: ASPIRIN 81 MG TAB.CHEW PO SCH (08:49)
[2016-10-20] MEDS: RALOXIFENE 60 MG TABLET PO SCH (08:49)
[2016-10-20] MEDS: LOSARTAN POTASSIUM 50 MG TABLET PO SCH (08:52)
[2016-10-20] MEDS: HYDROCHLOROTHIAZIDE 25 MG TABLET PO SCH (08:52)
[2016-10-20 16:00] VITALS: BP 123/69
[2016-10-20] MEDS: SITAGLIPTIN PHOSPHATE 50 MG TABLET PO SCH (17:18)
[2016-10-20] MEDS: Z GUARD REMEDY 2 OZ OINT TP SCH (17:21)
[2016-10-20 20:00] VITALS: BP 123/69
[2016-10-20 21:08] VITALS: BP_SYST 120; BP_SYST 128; BP_DIAS 66; BP_DIAS 82
[2016-10-20] MEDS: AMLODIPINE BESYLATE 10 MG TABLET PO SCH (21:27)
[2016-10-20] MEDS: ATORVASTATIN 10 MG TABLET PO SCH (21:27)
[2016-10-20] MEDS: ENOXAPARIN SODIUM 30 MG/0.3 ML DISP.SYRIN SQ SCH (21:28)
[2016-10-20] MEDS: INSULIN DETEMIR 100 UNIT/ML CARTRIDGE SQ SCH (21:41)
[2016-10-20] MEDS: *INSULIN REGULAR(HUMULIN R)HUM 100 UNIT/ML VIAL SQ PRN (21:42)
[2016-10-20] MEDS: ZOLPIDEM TARTRATE 5 MG TABLET PO PRN (21:54)
[2016-10-21] MEDS: BLOOD SUGAR DIAGNOSTIC 1 EACH STRIP VI SCH ×3 (06:24→17:09)
[2016-10-21] MEDS: INSULIN REGULAR, HUMAN 100 UNIT/ML 3 ML VIAL SQ PRN ×3 (06:31→17:12)
[2016-10-21 08:00] VITALS: BP 145/74
[2016-10-21] MEDS: ALBUTEROL HALF STRENGTH 1.25 MG/3 ML VIAL.NEB NEB SCH ×3 (08:11→15:44)
[2016-10-21] MEDS: IPRATROPIUM NEB FS 0.5 MG/2.5 ML AMPUL.NEB NEB SCH ×3 (08:11→15:43)
[2016-10-21] MEDS: methylPREDNISolone SOD SUCC 125 MG/2ML VIAL IV SCH ×2 (08:49→13:10)
[2016-10-21] MEDS: FLUTICASONE/SALMETEROL DISKUS IH SCH ×2 (09:09→17:09)
[2016-10-21] MEDS: RALOXIFENE 60 MG TABLET PO SCH (09:09)
[2016-10-21] MEDS: AZELASTINE NASAL SPRAY 30 ML BOTTLE NS SCH ×2 (09:09→17:09)
[2016-10-21] MEDS: MONTELUKAST SODIUM (10MG) 10 MG TABLET PO SCH (09:09)
[2016-10-21] MEDS: PANTOPRAZOLE 40 MG TABLET.DR PO SCH (09:09)
[2016-10-21] MEDS: LOSARTAN POTASSIUM 50 MG TABLET PO SCH (09:10)
[2016-10-21] MEDS: MULTIVITAMINS W-MINERALS 1 TAB TABLET PO SCH (09:10)
[2016-10-21] MEDS: METFORMIN XR 500 MG TAB.SR.24H PO SCH (09:10)
[2016-10-21] MEDS: ASPIRIN 81 MG TAB.CHEW PO SCH (09:10)
[2016-10-21] MEDS: HYDROCHLOROTHIAZIDE 25 MG TABLET PO SCH (09:10)
[2016-10-21] MEDS: Z GUARD REMEDY 2 OZ OINT TP SCH ×2 (09:11→17:00)
[2016-10-21 16:00] VITALS: BP 142/82
[2016-10-21] MEDS ORDERED: ATOR10TA PO (16:42)
[2016-10-21] MEDS ORDERED: Methylprednisolone Sod Succ IV (16:42)
[2016-10-21] MEDS: SITAGLIPTIN PHOSPHATE 50 MG TABLET PO SCH (17:13)
[2016-10-22] MEDS ORDERED: methylPREDNISolone SOD SUCC 125 MG/2ML VIAL IV SCH (09:00)
== END 2016-10-21 19:50 | DRG 189 ==
LOC: ER 19:28 → ICU 21:45 → MED 10-17 17:36 → TELE 10-17 17:48 → MED 10-19 08:33
PROVIDERS: ADMIT Nurse Practitioner Acute Care; ATTEND Nurse Practitioner Acute Care
PROC: 5A09357 Assistance with Respiratory Ventilation, Less than 24 Consecutive Hours, Continuous Positive Airway Pressure (ICD-10-PCS; principal; 2016-10-16)
DX: J96.01 Acute respiratory failure with hypoxia (principal); I50.33 Acute on chronic diastolic (congestive) heart failure; I21.4 Non-ST elevation (NSTEMI) myocardial infarction; J44.1 Chronic obstructive pulmonary disease with (acute) exacerbation; J45.901 Unspecified asthma with (acute) exacerbation; E11.65 Type 2 diabetes mellitus with hyperglycemia; K21.9 Gastro-esophageal reflux disease without esophagitis; I25.10 Atherosclerotic heart disease of native coronary artery without angina pectoris; I11.0 Hypertensive heart disease with heart failure
CPT/HCPCS: 36415; 70220-TC; 71010-TC; 80048-TC; 80053-TC; 80061-TC; 80076-TC; 82962-TC; 83735-TC; 83880; 84100-TC; 84443-TC; 84484-TC; 85025-TC; 85730-TC; 87040-TC; 87081-TC; 94799-TC; 97001-TC; 97116-TC; 97530-TC; A4606; J1650; J1815; J2930; Z7610

== ENCOUNTER 2016-12-10 09:01 | Inpatient (IN) | payer MEDICARE, OTHER ==
[~2016-12-10] VITALS: Ht 154.9 cm; Wt 55.3 kg
[~2016-12-10 09:01] MED LIST changes: +ATOR10TA PO; -CIPR500T5 PO; +Methylprednisolone Sod Succ IV
--- NOTE | 2016-12-10 09:01 | NUR ---
COUGH, CONGESTION AND SOB X 2 DAYS. NAD NOTED. PT AAO X4, SPEAKS GREEK. DAUGHTER AT BEDSIDE. AMBULATORY WITH STEADY GAIT. O2 SATURATION NOTED AT 88% RA AT THIS TIME. 02 APPLIED. RT PAGED. AT BEDSIDE FOR EVAL.
[2016-12-10] MEDS ORDERED: ALBUTEROL FS 2.5 MG/3 ML VIAL.NEB NEB ONE (09:30)
[2016-12-10] MEDS ORDERED: IPRATROPIUM NEB FS 0.5 MG/2.5 ML AMPUL.NEB ONE (09:30)
[2016-12-10] MEDS ORDERED: IV NS 0.9% 500 ML BAG IV ONE (09:30)
[2016-12-10] MEDS ORDERED: IPRATROPIUM NEB FS 0.5 MG/2.5 ML AMPUL.NEB NEB ONE (09:30)
[2016-12-10] MEDS ORDERED: methylPREDNISolone SOD SUCC 125 MG/2ML VIAL IV ONE (09:30)
[2016-12-10] MEDS ORDERED: ALBUTEROL FS 2.5 MG/3 ML VIAL.NEB ONE (09:30)
[2016-12-10 09:45] LABS: BASOPHILS % (AUTO) 0.1 % (0.0-2.0); EOSINOPHILS # (AUTO) 0.1 /CMM (0.0-0.7); EOSINOPHILS % (AUTO) 0.8 % (0.0-6.0); HEMATOCRIT 42 % (33-45); HEMOGLOBIN 13.7 g/dL (11.5-14.8); LYMPHOCYTES # (AUTO) 1.6 /CMM (0.8-4.8); LYMPHOCYTES % (AUTO) 9.4 % (20.0-44.0); MEAN CORPUSCULAR HEMOGLOBIN 29 PG (26.0-33.0); MEAN CORPUSCULAR HGB CONC 33 g/dl (31.0-36.0); MEAN CORPUSCULAR VOLUME 90 fL (82-100); MONOCYTES # (AUTO) 0.8 /CMM (0.1-1.30); MONOCYTES % (AUTO) 4.6 % (2.0-12.0); NEUTROPHILS # (AUTO) 14.7 /CMM (1.8-8.9); NEUTROPHILS % (AUTO) 85.1 % (43.0-81.0); PLATELET COUNT (AUTO) 308 /CMM (150-450); RDW COEFFICIENT OF VARIATION 17.9 (11.5-15.0); RED BLOOD CELL COUNT(AUTO) 4.69 MIL/uL (4.0-5.2); WHITE BLOOD COUNT (AUTO) 17.3 K/uL (4.3-11.0)
[2016-12-10] MEDS ORDERED: IV SET PRIMARY 1 EA INFUS.SET MC ONE (09:46)
[2016-12-10] MEDS ORDERED: IV NS 0.9% 500 ML IV ONE (09:46)
[2016-12-10] MEDS ORDERED: methylPREDNISolone SOD SUCC 125 MG/2ML VIAL ONE (09:46)
[2016-12-10 10:00] LABS: CALCIUM, SERUM 8.8 mg/dL (8.5-10.1); CREATININE 0.8 mg/dL (0.6-1.3); POTASSIUM 3.4 mmol/L (3.5-5.1)
[2016-12-10 10:04] LABS: INR 0.93 (0.87-1.13); PROTHROMBIN TIME 9.9 SECS (9.5-12.7)
[2016-12-10 10:08] LABS: TROPONIN I 0.046 ng/mL (0.00-0.056)
[2016-12-10 10:09] LABS: LACTIC ACID 1.6 mmol/L (0.4-2.0)
[2016-12-10 10:14] LABS: ALBUMIN 3.6 g/dL (3.4-5.0); BILIRUBIN,DIRECT 0.1 mg/dL (0.0-0.2); BILIRUBIN,TOTAL 0.6 mg/dL (0.2-1.0); TOTAL PROTEIN, SERUM 7.6 g/dL (6.4-8.2)
[2016-12-10 10:27] LABS: APPEARANCE,URINE CLEAR (CLEAR); BILIRUBIN,URINE NEGATIVE (NEGATIVE); BLOOD, URINE NEGATIVE Ery/uL (NEGATIVE); COLOR,URINE YELLOW (YELLOW); KETONES,URINE NEGATIVE (NEGATIVE); LEUKOCYTE ESTERASE ,URINE NEGATIVE (NEGATIVE); NITRITE, URINE NEGATIVE (NEGATIVE); PROTEIN,URINE NEGATIVE (NEGATIVE); UGLUCOSE 3+ mg/dL (NEGATIVE); UROBILINOGEN,URINE 0.2 EU/dL (0.2)
[2016-12-10] MEDS ORDERED: IV SET PRIMARY PUMP SET 1 EA INFUS.SET MC ONE ×2 (10:29→16:06)
[2016-12-10] MEDS ORDERED: CEFTRIAXONE 1GM BAG (ER ONLY) 50 ML IV ONE ×2 (10:29→10:30)
[2016-12-10] MEDS ORDERED: AZITHROMYCIN 500 MG in IV D5W 250 ML IV ONE (10:30)
[2016-12-10] MEDS ORDERED: METF-835 PO (10:31)
[2016-12-10] MEDS ORDERED: NPH,100V8 SQ (10:31)
[2016-12-10] MEDS ORDERED: PRED-272 PO (10:31)
[2016-12-10 10:35] LABS: ADD URINE CULTURE NO; BACTERIA,URINE None seen /HPF (None Seen); RBC,URINE 0-2 /HPF (0-2); SQUAMOUS EPITHELIAL CELL,UR Few /HPF (None Seen)
--- NOTE | 2016-12-10 11:34 | NUR ---
REPORT GIVEN TO ALEX VILLAGOMEZ FOR CONTINUITY OF CARE.
--- NOTE | 2016-12-10 11:37 | NUR ---
PAGED GAME TECHNICIAN PANEL ARAMIS FINLEY.
[2016-12-10 12:30] VITALS: BP 128/66
--- NOTE | 2016-12-10 12:45 | NUR ---
TELE/CASHIER CHECKER NOTES RECEIVED PATIENT, 75 Y/O [place] FEMALE FROM ER, [facility]IA [facility], WITH ADMISSION DX: PNA, HX: HTN, ASTHMA, DM TYPE 2, GERD, LEFT TKA DONE IN 2011, UNDER CARE OF DR. ARAMIS FINLEY. ALL ORDERS CONFIRMED BY MD. PATIENT AND DAUGHTER ASSISTED TO THE ROOM. ORIENTED TO THE CALL LIGHT SYSTEM AND VISITING HOURS. ADMISSION FULL BODY ASSESSMENT DONE, ALERT/ORIENTED X4, ABLE TO MAKE NEEDS KNOWN, [place] SPEAKING, TRANSLATION DONE BY DAUGHTER'S HELP. PATIENT IS CONTINENT, WALKS WITH ASSISTANCE, LAST BM YESTERDAY, BLADDER INCONTINENT D/T COUGHING. ON DIABETIC DIET. IV LINE RAC INTACT, O2 IN PLACE 3L/M VIA N/C TOLERATING WELL, NO SOB, NO CHEST PAIN. KEPT THE HOB ELEVATED, NEEDS ANTICIPATED IN TIMELY MANNER WITH CALL LIGHT WITHIN EASY REACH. ALL BELONGINGS, INCLUDING UPPER AND LOWER DENTURES RECORDED IN THE INVENTORY ACCORDINGLY
[2016-12-10] MEDS ORDERED: CODEINE/PROMETHAZINE HCL 5 ML UDC PO PRN (15:00)
[2016-12-10] MEDS: IPRATROPIUM NEB FS 0.5 MG/2.5 ML AMPUL.NEB NEB SCH ×2 (15:30→19:58)
[2016-12-10 16:00] VITALS: BP 113/65
[2016-12-10] MEDS ORDERED: AZITHROMYCIN 250 MG TABLET PO SCH (16:00)
[2016-12-10] MEDS: CEFTRIAXONE 1 G in IV D5W 50 ML IV SCH (16:00)
[2016-12-10] MEDS ORDERED: IV NS 0.9% 250 ML IV ONE (16:05)
[2016-12-10] MEDS ORDERED: SECONDARY IV SET 1 EA INFUS.SET MC ONE (16:16)
[2016-12-10] MEDS: METFORMIN 500 MG TABLET PO SCH (16:27)
[2016-12-10] MEDS: methylPREDNISolone SOD SUCC 125 MG/2ML VIAL IV SCH (16:28)
[2016-12-10] MEDS: INSULIN ASPART NOVOLOG 100 UNIT/ML CARTRIDGE SQ SCH (17:29)
[2016-12-10] MEDS: FLUTICASONE/SALMETEROL DISKUS IH SCH (17:29)
--- NOTE | 2016-12-10 17:38 | NUR ---
RT NOTE WILL START INITIAL ROUTINE TX AT 1930
[2016-12-10] MEDS ORDERED: IPRATROPIUM NEB FS 0.5 MG/2.5 ML AMPUL.NEB NEB SCH (19:30)
--- NOTE | 2016-12-10 19:36 | NUR ---
TELE/RN CLOSING NOTES PATIENT IN BED, AWAKE, ALERT, ABLE TO MAKE NEEDS KNOWN, WITHOUT SOB, O2 IN PLPACE WITH 3L/M VIA N/C TOLERATING WELL, NO CHEST PAIN. HOB ELEVATED 35 DEGREE FOR COMFORT. IV LINE INTACT ON LEFT WRIST, PATENT. KEPT CLEAN DRY, COMFORTABLE, NEEDS MET IN TIMELY MANNER, WITH CALL LIGHT WITHIN EASY REACH ALL THE TIME. ENDORSED TO THE DATA ENTRY CLERK NURSE ACCORDINGLY.
[2016-12-10] MEDS: ALBUTEROL FS 2.5 MG/3 ML VIAL.NEB NEB SCH (19:58)
[2016-12-10 20:00] VITALS: BP 106/60
[2016-12-10] MEDS: GUAIFENESIN/CODEINE 10 ML UDC PO PRN (21:25)
[2016-12-10] MEDS: ZOLPIDEM TARTRATE 5 MG TABLET PO PRN (21:25)
[2016-12-10] MEDS: INSULIN DETEMIR 100 UNIT/ML CARTRIDGE SQ SCH (21:26)
[2016-12-11] VITALS: BP 104/66
[2016-12-11 04:00] VITALS: BP_SYST 108; BP_SYST 145; BP_DIAS 58; BP_DIAS 91
--- NOTE | 2016-12-11 06:48 | NUR ---
ADDICTION PSYCHIATRIST NOTES AWAKE & RESPONSIVE. NOT IN ANY DISTRESS. NO SOB NOTED. DENIES ANY PAIN OR DISCOMFORT AT THIS TIME. ON TELE SR @ 75 WITH IV-HL PATENT & INTACT. AM CARE DONE. MONITORED ACCORDINGLY. CALL LIGHT WITHIN REACH. BED IN LOWEST POSITION. SR UP X 3 WITH BED ALARM ON FOR SAFETY. WILL ENDORSE TO NEXT SHIFT.
[2016-12-11 06:54] VITALS: BP 109/54
[2016-12-11] MEDS: INSULIN ASPART NOVOLOG 100 UNIT/ML CARTRIDGE SQ SCH ×3 (06:57→16:56)
[2016-12-11] MEDS: IPRATROPIUM NEB FS 0.5 MG/2.5 ML AMPUL.NEB NEB SCH ×4 (07:35→19:54)
[2016-12-11] MEDS: ALBUTEROL FS 2.5 MG/3 ML VIAL.NEB NEB SCH ×4 (07:35→19:54)
--- NOTE | 2016-12-11 07:41 | NUR ---
AGING ROOM OPERATOR OPENING NOTES PT IN BED SLEEPING. NO SIGNS OF ANY DISTRESS. NO SOB NOTED. DENIES ANY PAIN OR DISCOMFORT AT THIS TIME. ON TELE SR @ 81 WITH IV-HL PATENT & INTACT. MONITORED ACCORDINGLY. CALL LIGHT WITHIN REACH. BED IN LOWEST POSITION. BED ALARM ON FOR SAFETY.
[2016-12-11 08:00] VITALS: BP 109/54
[2016-12-11] MEDS ORDERED: SITAGLIPTIN PHOSPHATE 50 MG TABLET PO SCH (09:00)
[2016-12-11] MEDS: MULTIVITAMINS W-MINERALS 1 TAB TABLET PO SCH (09:28)
[2016-12-11] MEDS: methylPREDNISolone SOD SUCC 125 MG/2ML VIAL IV SCH ×3 (09:28→16:52)
[2016-12-11] MEDS: METFORMIN 500 MG TABLET PO SCH ×2 (09:28→16:53)
[2016-12-11] MEDS: RALOXIFENE 60 MG TABLET PO SCH (09:29)
[2016-12-11] MEDS: AMLODIPINE BESYLATE 10 MG TABLET PO SCH (09:29)
[2016-12-11] MEDS: MONTELUKAST SODIUM (10MG) 10 MG TABLET PO SCH (09:29)
[2016-12-11] MEDS: ASPIRIN 81 MG TAB.CHEW PO SCH (09:30)
[2016-12-11] MEDS: VALSARTAN 80 MG TABLET PO SCH (09:30)
[2016-12-11] MEDS: FLUTICASONE/SALMETEROL DISKUS IH SCH (09:31)
[2016-12-11] MEDS: AZITHROMYCIN 250 MG TABLET PO SCH (10:24)
[2016-12-11] MEDS: LINAGLIPTIN 5 MG TABLET PO SCH (10:24)
[2016-12-11] MEDS: CEFTRIAXONE 1 G in IV D5W 50 ML IV SCH (14:33)
[2016-12-11] MEDS ORDERED: SECONDARY IV SET 1 EA INFUS.SET MC ONE (14:34)
[2016-12-11 16:00] VITALS: BP 108/58
--- NOTE | 2016-12-11 19:18 | NUR ---
MS RN CLOSING NOTES PT IN BED AWAKE WATCHING TELEVISION. NO SIGNS OF ANY DISTRESS OR SOB NOTED. O2 IN PLACE WITH 3L/M VIA N/C. TOLERATING WELL. DENIES ANY PAIN OR DISCOMFORT AT THIS TIME. IV LINE ON LEFT WRIST PATENT & INTACT. MONITORED ACCORDINGLY. CALL LIGHT WITHIN REACH. BED IN LOWEST POSITION. KEPT CLEAN AND DRY. BED ALARM ON FOR SAFETY. CONTINUE TO MONITOR. WILL ENDORSE TO EDITORIAL PROJECT MANAGER NURSE.
[2016-12-11 20:00] VITALS: BP 117/63
[2016-12-11] MEDS: GUAIFENESIN/CODEINE 10 ML UDC PO PRN (20:53)
[2016-12-11] MEDS: ZOLPIDEM TARTRATE 5 MG TABLET PO PRN (20:54)
[2016-12-11] MEDS: INSULIN DETEMIR 100 UNIT/ML CARTRIDGE SQ SCH (21:10)
--- NOTE | 2016-12-12 06:24 | NUR ---
MS RN NOTES AWAKE & RESPONSIVE. NOT IN ANY DISTRESS. NO SOB NOTED. DENIES ANY PAIN OR DISCOMFORT AT THIS TIME. WITH IV-HL PATENT & INTACT. MONITORED ACCORDINGLY. CALL LIGHT WITHIN REACH. BED IN LOWEST POSITION. SR UP X 3 WITH BED ALARM ON FOR SAFETY. WILL ENDORSE TO NEXT SHIFT.
[2016-12-12] MEDS: INSULIN ASPART NOVOLOG 100 UNIT/ML CARTRIDGE SQ SCH ×3 (06:38→16:38)
[2016-12-12 06:55] LABS: BASOPHILS % (AUTO) 0.3 % (0.0-2.0); HEMATOCRIT 40 % (33-45); HEMOGLOBIN 13.2 g/dL (11.5-14.8); LYMPHOCYTES # (AUTO) 1.9 /CMM (0.8-4.8); MEAN CORPUSCULAR HEMOGLOBIN 30 PG (26.0-33.0); MEAN CORPUSCULAR HGB CONC 33 g/dl (31.0-36.0); MEAN CORPUSCULAR VOLUME 90 fL (82-100); MONOCYTES # (AUTO) 0.6 /CMM (0.1-1.30); MONOCYTES % (AUTO) 3.2 % (2.0-12.0); NEUTROPHILS # (AUTO) 16.4 /CMM (1.8-8.9); NEUTROPHILS % (AUTO) 86.5 % (43.0-81.0); PLATELET COUNT (AUTO) 293 /CMM (150-450); RDW COEFFICIENT OF VARIATION 17.6 (11.5-15.0); RED BLOOD CELL COUNT(AUTO) 4.47 MIL/uL (4.0-5.2)
[2016-12-12 07:04] LABS: CALCIUM, SERUM 8.6 mg/dL (8.5-10.1); CREATININE 0.8 mg/dL (0.6-1.3); MAGNESIUM 2.1 mg/dL (1.8-2.4); PHOSPHORUS 2.4 mg/dL (2.5-4.9)
--- NOTE | 2016-12-12 07:30 | NUR ---
RN AM NOTES PATIENT RECEIVED AWAKE, SAFELY IN BED IN STABLE CONDITION. BED ALARM ON, PATIENT ALERT AND ORIENTED X3. NEPALI SPEAKING WITH BASIC CHADIAN. WILL CONTINUE TO MONITOR
[2016-12-12] MEDS: ALBUTEROL FS 2.5 MG/3 ML VIAL.NEB NEB SCH ×4 (07:47→20:12)
[2016-12-12] MEDS: IPRATROPIUM NEB FS 0.5 MG/2.5 ML AMPUL.NEB NEB SCH ×4 (07:47→20:12)
[2016-12-12 08:00] VITALS: BP 117/65
[2016-12-12] MEDS: METFORMIN 500 MG TABLET PO SCH ×2 (08:24→16:33)
[2016-12-12] MEDS: RALOXIFENE 60 MG TABLET PO SCH (08:24)
[2016-12-12] MEDS: MULTIVITAMINS W-MINERALS 1 TAB TABLET PO SCH (08:25)
[2016-12-12] MEDS: MONTELUKAST SODIUM (10MG) 10 MG TABLET PO SCH (08:25)
[2016-12-12] MEDS: ASPIRIN 81 MG TAB.CHEW PO SCH (08:25)
[2016-12-12] MEDS: LINAGLIPTIN 5 MG TABLET PO SCH (08:25)
[2016-12-12] MEDS: methylPREDNISolone SOD SUCC 125 MG/2ML VIAL IV SCH ×2 (08:26→12:01)
[2016-12-12] MEDS: AMLODIPINE BESYLATE 10 MG TABLET PO SCH (08:26)
[2016-12-12] MEDS: VALSARTAN 80 MG TABLET PO SCH (08:26)
[2016-12-12] MEDS: AZITHROMYCIN 250 MG TABLET PO SCH (11:24)
--- NOTE | 2016-12-12 13:50 | NUR ---
DAUGHTER WOULD PREFER DR. PHILLIPS TO FOLLOW UP ONCE PATIENT IS DISCHARGED. SHE SAYS SHE SPOKE TO DR. PHILLIPS PERSONALLY AND DR. PEREZ.
[2016-12-12] MEDS ORDERED: K PHOS NEUTRAL 250 MG TABLET PO ONE (14:30)
[2016-12-12] MEDS: CEFTRIAXONE 1 G in IV D5W 50 ML IV SCH (14:59)
[2016-12-12 16:00] VITALS: BP 124/63
--- NOTE | 2016-12-12 18:27 | NUR ---
RN PM NOTES PATIENT WATCHING TELEVISION AFTER DINNER WITH DAUGHTER AT BEDSIDE. RESTING COMFORTABLY AND SAFELY UP IN CHAIR. TOLERATED MEDS WELL. PLEASE FOLLOW UP WITH DAUGHTER REGARDING DISCHARGE WITH DR. FINLEY AND DR. PHILLIPS TO DO POST-HOSPITAL FOLLOW UP. WILL ENDORSE TO NEXT SHIFT.
--- NOTE | 2016-12-12 19:25 | NUR ---
MS RN NOTES RECEIVED PT SITTING UP IN THE CHAIR. DAUGHTER AT BED SIDE. PT IS A/O X4. NO DISTRESS, NO SOB. WITH ON AND OFF EPISODE OF NON PRODUCTIVE COUGH, OFFERED ROBITUSSIN BUT PT PREFERS TO TAKE IT LATER, AFTER THE BREATHING TX. IV SITE ON LEFT HAND INTACT AND PATENT NO S/S OF INFILTRATION NOTED. NO C/O PAIN OR DISCOMFORT AT THIS TIME. ALL NEEDS ATTENDED AND MET. KEPT COMFORTABLE. AFEBRILE. CALL LIGHT WITHIN REACH. WILL CONTINUE TO MONITOR.
[2016-12-12 20:00] VITALS: BP 109/61
[2016-12-12] MEDS: INSULIN DETEMIR 100 UNIT/ML CARTRIDGE SQ SCH (21:16)
[2016-12-12] MEDS: GUAIFENESIN/CODEINE 10 ML UDC PO PRN (21:22)
--- NOTE | 2016-12-12 21:50 | NUR ---
PT REQUESTED FOR ELIZABETH, D/T INABILITY TO SLEEP. PLACED A CALL TO DR. BEY AND RECEIVED AN ORDER FOR ELIZABETH NOTED AND CARRIED OUT.
[2016-12-12] MEDS ORDERED: ZOLPIDEM TARTRATE 5 MG TABLET ONE (21:57)
[2016-12-12 22:00] VITALS: BP 109/61
[2016-12-12] MEDS: ZOLPIDEM TARTRATE 5 MG TABLET PO PRN (22:03)
[2016-12-13] MEDS: INSULIN ASPART NOVOLOG 100 UNIT/ML CARTRIDGE SQ SCH ×3 (06:13→17:27)
--- NOTE | 2016-12-13 06:56 | NUR ---
MS RN NOTES PT IS RESTING COMFORTABLY AT THIS TIME. AROUSES EASILY, PT IS A/O X4. NO DISTRESS, NO SOB. IV SITE ON LEFT HAND INTACT AND PATENT NO S/S OF INFILTRATION NOTED. NO C/O PAIN OR DISCOMFORT AT THIS TIME. NO S/S O HYPO/ HYPERGLYCEMIA NOTED. ALL NEEDS ATTENDED AND MET. KEPT COMFORTABLE. AFEBRILE. CALL LIGHT WITHIN REACH. WILL CONTINUE TO MONITOR.
[2016-12-13 06:57] LABS: CALCIUM, SERUM 8.8 mg/dL (8.5-10.1); CREATININE 0.7 mg/dL (0.6-1.3)
--- NOTE | 2016-12-13 06:59 | NUR ---
MS RN NOTES PT RESTING AT THIS TIME, AROUSES EASILY. NO ACUTE DISTRESS. WILL ENDORSE TO NEXT SHIFT FOR SHIMON
[2016-12-13] MEDS: ALBUTEROL FS 2.5 MG/3 ML VIAL.NEB NEB SCH ×4 (07:00→20:23)
[2016-12-13] MEDS: IPRATROPIUM NEB FS 0.5 MG/2.5 ML AMPUL.NEB NEB SCH ×4 (07:00→20:23)
[2016-12-13 07:04] LABS: BASOPHILS % (AUTO) 0.1 % (0.0-2.0); HEMATOCRIT 40 % (33-45); HEMOGLOBIN 13.1 g/dL (11.5-14.8); LYMPHOCYTES % (AUTO) 21.9 % (20.0-44.0); MEAN CORPUSCULAR HEMOGLOBIN 29 PG (26.0-33.0); MEAN CORPUSCULAR HGB CONC 32 g/dl (31.0-36.0); MEAN CORPUSCULAR VOLUME 91 fL (82-100); MONOCYTES # (AUTO) 0.8 /CMM (0.1-1.30); NEUTROPHILS # (AUTO) 9.8 /CMM (1.8-8.9); PLATELET COUNT (AUTO) 289 /CMM (150-450); RDW COEFFICIENT OF VARIATION 17.9 (11.5-15.0); RED BLOOD CELL COUNT(AUTO) 4.45 MIL/uL (4.0-5.2); WHITE BLOOD COUNT (AUTO) 13.6 K/uL (4.3-11.0)
--- NOTE | 2016-12-13 07:31 | NUR ---
AM RN NOTE Received patient awake, receiving HHN Tx by RT. Skin warm and dry to touch. IV site intact and patent. Bed in low locked position. Will continue to monitor.
[2016-12-13 08:00] VITALS: BP 127/70
[2016-12-13] MEDS: MULTIVITAMINS W-MINERALS 1 TAB TABLET PO SCH (08:17)
[2016-12-13] MEDS: ASPIRIN 81 MG TAB.CHEW PO SCH (08:17)
[2016-12-13] MEDS: RALOXIFENE 60 MG TABLET PO SCH (08:17)
[2016-12-13] MEDS: METFORMIN 500 MG TABLET PO SCH ×2 (08:17→16:50)
[2016-12-13] MEDS: MONTELUKAST SODIUM (10MG) 10 MG TABLET PO SCH (08:17)
[2016-12-13] MEDS: LINAGLIPTIN 5 MG TABLET PO SCH (08:17)
[2016-12-13] MEDS: methylPREDNISolone SOD SUCC 125 MG/2ML VIAL IV SCH (08:18)
[2016-12-13] MEDS: AMLODIPINE BESYLATE 10 MG TABLET PO SCH (08:18)
[2016-12-13] MEDS: VALSARTAN 80 MG TABLET PO SCH (08:18)
[2016-12-13] MEDS: AZITHROMYCIN 250 MG TABLET PO SCH (12:10)
[2016-12-13] MEDS ORDERED: K PHOS NEUTRAL 250 MG TABLET PO ONE (14:10)
[2016-12-13] MEDS: CEFTRIAXONE 1 G in IV D5W 50 ML IV SCH (14:56)
[2016-12-13] MEDS ORDERED: IV SET PRIMARY PUMP SET 1 EA INFUS.SET MC ONE (14:57)
[2016-12-13 16:00] VITALS: BP 128/73
--- NOTE | 2016-12-13 16:05 | NUR ---
RN NOTE Robitussin PRN PO given as ordered.
--- NOTE | 2016-12-13 18:06 | NUR ---
RN NOTE Patient lying in her bed, on O2 2L/min via NC. IV site intact and patent. Denies any pain at this time. Will endorse to next shift for SHIMON.
[2016-12-13] MEDS ORDERED: Z GUARD REMEDY 2 OZ OINT TP PRN (19:00)
--- NOTE | 2016-12-13 19:10 | NUR ---
RN NOTES RECEIVED PT AWAKE IN BED, IN HIGH FOWLERS POSITION, NO SOB, NOT IN DISTRESS, WITH O2 INHALATION AT 2LPM VIA NC AND TOLERATED WELL. WITH DIMINISHED LUNG SOUNDS UPON AUSCULTATION, COUGH AT TIMES, NON PRODUCTIVE. PT ALERT AND ORIENTED X4, YAKUT SPEAKING , UNDERSTANDS AND SPEAKS A LITTLE OF [place]. DENIES ANY PAIN AND DISCOMFORT AT THIS TIME. IV ACCESS ON LEFT HAND PATENT AND INTACT. KEPT COMFORTABLE AND ATTENDED. WILL CONTINUE TO MONITOR PT.
[2016-12-13 20:00] VITALS: BP 146/74
[2016-12-13 22:00] VITALS: BP 146/74
[2016-12-13] MEDS: INSULIN DETEMIR 100 UNIT/ML CARTRIDGE SQ SCH (22:17)
--- NOTE | 2016-12-13 22:17 | NUR ---
RN NOTES 5 UNITS LEVEMIR DUE AT THIS TIME GIVEN SUBCU WITH BLOOD SUGAR OF 262 MG/DL. WILL CONTINUE TO MONITOR PT.
[2016-12-13] MEDS: ZOLPIDEM TARTRATE 5 MG TABLET PO PRN (22:19)
[2016-12-13] MEDS: GUAIFENESIN/CODEINE 10 ML UDC PO PRN (22:19)
--- NOTE | 2016-12-13 22:19 | NUR ---
RN NOTES PT NOTED HAS DIFFICULTY SLEEPING AND COUGHING, PT REQUEST FOR SLEEPING PILL AND COUGH SYRUP. AMBIEN 5 MG TAB AND ROBITUSSIN AC SYRUP 5ML GIVEN PO. WILL CONTINUE TO MONITOR PT.
[2016-12-14 06:45] LABS: BASOPHILS % (AUTO) 0.1 % (0.0-2.0); EOSINOPHILS % (AUTO) 0.2 % (0.0-6.0); HEMATOCRIT 42 % (33-45); HEMOGLOBIN 13.6 g/dL (11.5-14.8); LYMPHOCYTES # (AUTO) 3.4 /CMM (0.8-4.8); LYMPHOCYTES % (AUTO) 32.8 % (20.0-44.0); MEAN CORPUSCULAR HEMOGLOBIN 30 PG (26.0-33.0); MEAN CORPUSCULAR HGB CONC 33 g/dl (31.0-36.0); MEAN CORPUSCULAR VOLUME 90 fL (82-100); MONOCYTES # (AUTO) 0.8 /CMM (0.1-1.30); MONOCYTES % (AUTO) 7.6 % (2.0-12.0); NEUTROPHILS # (AUTO) 6.1 /CMM (1.8-8.9); NEUTROPHILS % (AUTO) 59.3 % (43.0-81.0); PLATELET COUNT (AUTO) 314 /CMM (150-450); RDW COEFFICIENT OF VARIATION 17.6 (11.5-15.0); RED BLOOD CELL COUNT(AUTO) 4.61 MIL/uL (4.0-5.2); WHITE BLOOD COUNT (AUTO) 10.3 K/uL (4.3-11.0)
[2016-12-14] MEDS: INSULIN ASPART NOVOLOG 100 UNIT/ML CARTRIDGE SQ SCH ×3 (06:55→17:24)
--- NOTE | 2016-12-14 06:55 | NUR ---
RN NOTES DUE REGULAR INSULIN 3 UNITS GIVEN SUBCU. WITH BLOOD SUGAR 0F 127 MG/DL.
--- NOTE | 2016-12-14 07:03 | NUR ---
RN NOTES PT ASLEEP , HOB ELEVATED, BREATHING REGULAR AND UNLABORED, NO SOB, NOT IN DISTRESS WITH O2 INHALATION AT 2LPM VIA NC AND TOLERATED WELL. VITAL SIGNS STABLE, AFEBRILE. NO COMPLAIN OF PAIN, NO EPISODE OF NAUSEA AND [id number]. COUGH AT TIMES, NON PRODUCTIVE, COUGH SYRUP GIVEN ONCE AND PT SLEPT WELL. ASSISTED PT TO THE BATHROOM, FALL PRECAUTION OBSERVED. KEPT COMFORTABLE AND ATTENDED. WILL ENDORSE TO MORNING RN FOR CONTINUITY OF CARE.
[2016-12-14 07:08] LABS: CALCIUM, SERUM 8.8 mg/dL (8.5-10.1); CREATININE 0.7 mg/dL (0.6-1.3); PHOSPHORUS 2.2 mg/dL (2.5-4.9); POTASSIUM 3.7 mmol/L (3.5-5.1)
--- NOTE | 2016-12-14 07:24 | NUR ---
AM RN NOTE Received patient awake, A/O X3 verbally responsive able to make needs known. Denies any pain at this time. IV site intact and patent. Will continue to monitor. Call light with in reach.
[2016-12-14 08:11] VITALS: BP 138/79
[2016-12-14] MEDS: RALOXIFENE 60 MG TABLET PO SCH (08:13)
[2016-12-14] MEDS: MULTIVITAMINS W-MINERALS 1 TAB TABLET PO SCH (08:13)
[2016-12-14] MEDS: IPRATROPIUM NEB FS 0.5 MG/2.5 ML AMPUL.NEB NEB SCH ×4 (08:14→20:06)
[2016-12-14] MEDS: METFORMIN 500 MG TABLET PO SCH ×2 (08:14→17:18)
[2016-12-14] MEDS: LINAGLIPTIN 5 MG TABLET PO SCH (08:14)
[2016-12-14] MEDS: AMLODIPINE BESYLATE 10 MG TABLET PO SCH (08:14)
[2016-12-14] MEDS: ALBUTEROL FS 2.5 MG/3 ML VIAL.NEB NEB SCH ×4 (08:14→20:06)
[2016-12-14] MEDS: MONTELUKAST SODIUM (10MG) 10 MG TABLET PO SCH (08:14)
[2016-12-14] MEDS: VALSARTAN 80 MG TABLET PO SCH (08:14)
[2016-12-14] MEDS: ASPIRIN 81 MG TAB.CHEW PO SCH (08:14)
[2016-12-14] MEDS: methylPREDNISolone SOD SUCC 125 MG/2ML VIAL IV SCH (08:15)
[2016-12-14] MEDS: AZITHROMYCIN 250 MG TABLET PO SCH (11:49)
[2016-12-14] MEDS ORDERED: K PHOS NEUTRAL 250 MG TABLET PO ONE (14:00)
[2016-12-14] MEDS: CEFTRIAXONE 1 G in IV D5W 50 ML IV SCH (14:38)
[2016-12-14 16:57] VITALS: BP 110/65
--- NOTE | 2016-12-14 18:13 | NUR ---
RN NOTE Patient lying in her bed and daughter at bedside. Denies any pain or discomfort at this time. IV site intact and patent. Will continue to monitor. Will endorse to next shift for SHIMON.
--- NOTE | 2016-12-14 19:10 | NUR ---
RN NOTES RECEIVED PT AWAKE IN BED, IN HIGH FOWLERS POSITION, NO SOB, NOT IN DISTRESS,WITH DAUGHTER AT BEDSIDE.ON ROOM AIR AND TOLERATED WELL, DIMINISHED LUNG SOUNDS UPON AUSCULTATION, COUGH AT TIMES, NON PRODUCTIVE. PT ALERT AND ORIENTED X4, TAJIK SPEAKING , UNDERSTANDS AND SPEAKS A LITTLE OF [place]. DENIES ANY PAIN AND DISCOMFORT AT THIS TIME. IV ACCESS ON LEFT HAND PATENT AND INTACT. AMBULATES TO THE BATHROOM WITH STEADY GAIT, ,FALL PRECAUTION OBSERVED. KEPT COMFORTABLE AND ATTENDED. WILL CONTINUE TO MONITOR PT.
[2016-12-14] MEDS: GUAIFENESIN/CODEINE 10 ML UDC PO PRN (19:49)
--- NOTE | 2016-12-14 19:49 | NUR ---
RN NOTES PT HEARD COUGHING , ROBITUSSIN AC SYRUP 5ML GIVEN PO AND TOLERATED WELL. WILL CONTINUE TO MONITOR PT.
[2016-12-14 20:00] VITALS: BP 143/71
[2016-12-14] MEDS: ZOLPIDEM TARTRATE 5 MG TABLET PO PRN (21:58)
--- NOTE | 2016-12-14 21:58 | NUR ---
RN NOTES PT IS VERBALIZING DIFFICULTY IN SLEEPING, AMBIEN 5 MG TAB GIVEN PO AND TOLERATED WELL. WILL CONTINUE TO MONITOR PT.
[2016-12-14 22:00] VITALS: BP 143/71
[2016-12-14] MEDS: INSULIN DETEMIR 100 UNIT/ML CARTRIDGE SQ SCH (22:03)
[2016-12-15] MEDS: GUAIFENESIN/CODEINE 10 ML UDC PO PRN (00:18)
--- NOTE | 2016-12-15 00:18 | NUR ---
RN NOTES PT COUGHING, ROBITUSSIN AC SYRUP GIVEN PO. WILL CONTINUE TO MONITOR PT.
[2016-12-15] MEDS: INSULIN ASPART NOVOLOG 100 UNIT/ML CARTRIDGE SQ SCH ×2 (06:32→11:59)
--- NOTE | 2016-12-15 06:44 | NUR ---
RN NOTES PT ASLEEP , HOB ELEVATED, BREATHING REGULAR AND UNLABORED, NO SOB, NOT IN DISTRESS. ON ROOM AIR AND TOLERATED WELL WITH O2 SAT AT 95%. VITAL SIGNS STABLE, AFEBRILE. NO COMPLAIN OF PAIN, NO EPISODE OF NAUSEA AND [id number]. COUGH AT TIMES, NON PRODUCTIVE, COUGH SYRUP GIVEN. PT SLEPT WELL. ASSISTED PT TO THE BATHROOM, AMBULATORY WITH STEADY GAIT, FALL PRECAUTION OBSERVED. KEPT COMFORTABLE AND ATTENDED. WILL ENDORSE TO MORNING RN FOR CONTINUITY OF CARE.
[2016-12-15 06:59] LABS: CREATININE 0.7 mg/dL (0.6-1.3); PHOSPHORUS 2.9 mg/dL (2.5-4.9); POTASSIUM 3.7 mmol/L (3.5-5.1)
--- NOTE | 2016-12-15 07:25 | NUR ---
AM RN NOTE Received patient awake, A/O X3 verbally responsive. Denies any pain at this time. IV site intact and patent. Will continue to monitor.
[2016-12-15] MEDS: METFORMIN 500 MG TABLET PO SCH (08:07)
[2016-12-15] MEDS: MULTIVITAMINS W-MINERALS 1 TAB TABLET PO SCH (08:07)
[2016-12-15] MEDS: methylPREDNISolone SOD SUCC 125 MG/2ML VIAL IV SCH (08:07)
[2016-12-15] MEDS: RALOXIFENE 60 MG TABLET PO SCH (08:07)
[2016-12-15] MEDS: MONTELUKAST SODIUM (10MG) 10 MG TABLET PO SCH (08:07)
[2016-12-15] MEDS: LINAGLIPTIN 5 MG TABLET PO SCH (08:07)
[2016-12-15] MEDS: AMLODIPINE BESYLATE 10 MG TABLET PO SCH (08:07)
[2016-12-15] MEDS: ASPIRIN 81 MG TAB.CHEW PO SCH (08:08)
[2016-12-15] MEDS: VALSARTAN 80 MG TABLET PO SCH (08:08)
[2016-12-15] MEDS: IPRATROPIUM NEB FS 0.5 MG/2.5 ML AMPUL.NEB NEB SCH ×2 (08:20→11:20)
[2016-12-15] MEDS: ALBUTEROL FS 2.5 MG/3 ML VIAL.NEB NEB SCH ×2 (08:20→11:20)
[2016-12-15 08:33] VITALS: BP 143/76
[2016-12-15] MEDS ORDERED: PRED-272 PO (10:14)
[2016-12-15] MEDS ORDERED: PRED20TA PO (10:14)
[2016-12-15] MEDS ORDERED: CEFU500T66 PO (10:17)
[2016-12-15] MEDS ORDERED: DOXY100C2 PO (10:17)
[2016-12-15] MEDS: AZITHROMYCIN 250 MG TABLET PO SCH (11:55)
--- NOTE | 2016-12-15 12:20 | NUR ---
Patient awake, A/O X3 verbally responsive able to make needs known. Skin warm and dry to touch. Discharge order given by Dr. Charanjit Berry. Pt also seen by Dr. Huerta. Discharge instructions on medications and teachings given to patient and daughter (Agustina) at bedside. Belongings endorsed and signed. Patient denies any pain at this time.
--- NOTE | 2016-12-15 12:35 | NUR ---
RN NOTE Patient awake, no SOB noted resp even and non-labored. O2 sat 94-96% at RA. HL and ID band removed. Skin intact. Pt discharged/ left unit at this time as accompanied by daughter and PARTS PRODUCT ANALYST to parking lot with all her belongings.
== END 2016-12-15 12:30 | disposition home or self-care (01) | DRG 190 ==
LOC: ER 09:03 → TELE 11:42 → MED 12-11 08:55
PROVIDERS: ADMIT Nurse Practitioner Acute Care; ATTEND Nurse Practitioner Acute Care
DX: J44.0 Chronic obstructive pulmonary disease with (acute) lower respiratory infection (principal); J15.9 Unspecified bacterial pneumonia; E87.1 Hypo-osmolality and hyponatremia; I50.32 Chronic diastolic (congestive) heart failure; J98.11 Atelectasis; J44.1 Chronic obstructive pulmonary disease with (acute) exacerbation; E11.9 Type 2 diabetes mellitus without complications; K21.9 Gastro-esophageal reflux disease without esophagitis; L80 Vitiligo; J45.909 Unspecified asthma, uncomplicated; I25.10 Atherosclerotic heart disease of native coronary artery without angina pectoris; D72.829 Elevated white blood cell count, unspecified; I11.0 Hypertensive heart disease with heart failure
CPT/HCPCS: 36415; 71010-TC; 80048-TC; 80076-TC; 81000-TC; 82962-TC; 83605-TC; 83735-TC; 83880; 84100-TC; 84484-TC; 85025-TC; 85730-TC; 87040-TC; 87081-TC; 94799-TC; A4606; J0456; J0696; J1815; J2930; J7040; J7050; J7060; Z7610